=== PATIENT | female | born 1965 | race African-American/Black ===

== ENCOUNTER 2019-06-20 21:07 | Emergency (ER) | payer OTHER ==
[~2019-06-20] VITALS: Ht 154.9 cm; Wt 59.0 kg
[2019-06-21] MEDS ORDERED: TRAMADOL 50MG TABLET PO ONE (06:45)
[2019-06-21] MEDS ORDERED: IBUPROFEN 600MG TABLET PO ONE (06:45)
[2019-06-21 06:57] VITALS: BP 135/65
== END 2019-06-21 08:45 | disposition home or self-care (01) ==
LOC: ER 21:07
DX: M25.511 Pain in right shoulder (principal); M54.5 Low back pain; V19.88XA Pedal cyclist (driver) (passenger) injured in other specified transport accidents, initial encounter; Y93.89 Activity, other specified; Y92.89 Other specified places as the place of occurrence of the external cause; Y99.8 Other external cause status
CPT/HCPCS: 72100; 99283

== ENCOUNTER 2023-10-16 11:35 | Emergency (ER) | payer MEDICAID, OTHER ==
[~2023-10-16] VITALS: Ht 157.5 cm; Wt 60.0 kg
[2023-10-16 11:48] VITALS: O2SAT 98
[2023-10-16 12:32] LABS: BASOPHILS % 0.3 % (0.0-2.0); EOSINOPHILS % 0.6 % (0.0-5.0); HEMATOCRIT. 39.3 % (36.0-48.0); HEMOGLOBIN. 13.6 g/dL (12.0-16.0); LYMPHOCYTES % 28.6 % (20.0-50.0); MEAN CORPUSCULAR HEMOGLOBIN 31.5 pg (28.0-32.0); MEAN CORPUSCULAR HGB CONC 34.7 g/dL (31.0-37.0); MEAN CORPUSCULAR VOLUME 90.6 fL (81.0-99.0); MEAN PLATELET VOLUME 9.9 fl (7.4-10.4); MONOCYTES % 4.4 % (2.0-8.0); NEUTROPHILS % 66.1 % (40.0-76.0); PLATELET 132 x1000/uL (130-400); RED BLOOD CELL COUNT 4.33 mill/uL (4.2-5.4); WHITE BLOOD COUNT 6.6 x1000/uL (4.5-11.0)
[2023-10-16 12:52] LABS: CHLORIDE 107 mEq/L (98-107); POTASSIUM 3.9 mEq/L (3.5-5.1); SODIUM 141 mEq/L (136-145)
[2023-10-16 12:53] LABS: CALCIUM 9.1 mg/dL (8.7-10.4); CARBON DIOXIDE 27 mEq/L (21-32)
[2023-10-16 12:58] LABS: CREATININE 0.8 mg/dL (0.6-1.0); GLUCOSE 172 mg/dL (70-105); UREA NITROGEN BLOOD 13 mg/dL (9-23)
[2023-10-16 13:00] LABS: ALANINE AMINOTRANSFERASE 22 IU/L (10-49); ALBUMIN 4.5 g/dL (3.2-4.8); ASPARTATE AMINOTRANSFERASE 23 IU/L (<34); BILIRUBIN TOTAL 0.5 mg/dL (0.1-1.0); PROTEIN TOTAL 7.6 g/dL (6.0-8.3)
[2023-10-16] MEDS: ACETAMINOPHEN 325MG TABLET PO ONE (13:24)
[2023-10-16] MEDS ORDERED: BENZ200C52 MT (13:33)
[2023-10-16] MEDS ORDERED: ACET325T52 MT (13:33)
[2023-10-16 14:21] VITALS: BP 125/77; PULSE 77; RESP 18; TEMP 98.3
== END 2023-10-16 14:34 | disposition home or self-care (01) ==
LOC: ER 11:35
DX: R05.1 Acute cough (principal)
CPT/HCPCS: 36415; 71045; 80053; 85025; 99284

== ENCOUNTER 2023-12-29 17:03 | Emergency (ER) | payer SELFPAY ==
[~2023-12-29] VITALS: Ht 162.6 cm; Wt 81.0 kg
[~2023-12-29 17:03] MED LIST: ACET325T52 MT; BENZ200C52 MT
[2023-12-29 17:09] VITALS: O2SAT 97
[2023-12-29 17:16] VITALS: BP 119/70; PULSE 107; RESP 18
[2023-12-29 17:38] LABS: BASOPHILS % 0.1 % (0.0-2.0); EOSINOPHILS % 0.1 % (0.0-5.0); HEMATOCRIT. 40.6 % (36.0-48.0); LYMPHOCYTES % 13.3 % (20.0-50.0); MEAN CORPUSCULAR HEMOGLOBIN 31.4 pg (28.0-32.0); MEAN CORPUSCULAR HGB CONC 34.5 g/dL (31.0-37.0); MEAN PLATELET VOLUME 11.2 fl (7.4-10.4); MONOCYTES % 7.5 % (2.0-8.0); PLATELET 133 x1000/uL (130-400); RED BLOOD CELL COUNT 4.46 mill/uL (4.2-5.4); RED CELL DISTRIBUTION WIDTH 12.5 % (11.6-14.6); WHITE BLOOD COUNT 6.2 x1000/uL (4.5-11.0)
[2023-12-29 17:43] LABS: CHLORIDE 104 mEq/L (98-107); POTASSIUM 3.5 mEq/L (3.5-5.1); SODIUM 137 mEq/L (136-145)
[2023-12-29 17:44] LABS: CARBON DIOXIDE 26 mEq/L (21-32)
[2023-12-29 17:49] LABS: CREATININE 0.8 mg/dL (0.6-1.0); GLUCOSE 143 mg/dL (70-105); UREA NITROGEN BLOOD 8 mg/dL (9-23)
[2023-12-29 18:03] LABS: CLARITY URINE CLEAR (CLEAR); COLOR URINE YELLOW (YELLOW); GLUCOSE URINE NEGATIVE (NEGATIVE); KETONES URINE NEGATIVE (NEGATIVE); LEUKOCYTE ESTERASE URINE TRACE (NEGATIVE); NITRITE URINE NEGATIVE (NEGATIVE); OCCULT BLOOD URINE NEGATIVE (NEGATIVE); PH URINE 6.5 (4.5-8.0); PROTEIN URINE NEGATIVE (NEGATIVE); SPECIFIC GRAVITY URINE 1.008 (1.005-1.030); UROBILINOGEN URINE 0.2 E.U./dL (0.2-1.0)
[2023-12-29 18:15] VITALS: TEMP 99.6
[2023-12-29] MEDS: ONDANSETRON 4MG ODT PO ONE (18:15)
[2023-12-29] MEDS: ACETAMINOPHEN 500MG TABLET PO ONE (18:15)
[2023-12-29 18:26] LABS: BACTERIA URINE NONE SEEN; RBC URINE 0-2 /hpf (0-2); SQUAMOUS EPITHELIAL CELL URINE 2+ /lpf (RARE/1+)
== END 2023-12-29 19:39 | disposition home or self-care (01) ==
LOC: ER 17:03
DX: B34.9 Viral infection, unspecified (principal)
CPT/HCPCS: 99283; 80048; 81003; 81025; 85025; 36415; Q0162